=== PATIENT | male | born 1940 | race Caucasian/White ===

== ENCOUNTER 2023-02-09 20:38 | Observation (INO) ==
[2023-02-09 21:37] LABS: ABS Eosinophils 0.2 10^3/ul (0-0.6); ABS Lymphocytes 1.4 10^3/ul (1.0-4.8); ABS Monocytes 0.7 10^3/ul (0-0.8); ABS Neutrophils 5.7 10^3/ul (1.5-7.7); Eosinophil % 2.1 %; Hematocrit 45 % (42-52); Hemoglobin 14.8 g/dL (14.0-18.0); Lymphocyte % 17.9 %; Mean Corpuscular Hemoglobin 32 pg (27-31); Mean Corpuscular Hgb Conc 33 g/dL (31-36); Mean Corpuscular Volume 95 fL (80-94); Platelet Count 242 10^3/uL (150-450); Red Blood Count 4.71 10^6 /uL (4.18-5.48); Red Cell Distribution Width 13 % (10-15)
[2023-02-09 21:43] LABS: INR 1.02 (0.88-1.18)
[2023-02-09 22:11] LABS: Albumin 4.2 g/dL (3.2-5.2); Albumin/Globulin Ratio 1.8 (1-3); Calcium 9.5 mg/dL (8.6-10.3); Creatinine, Serum 1.34 mg/dL (0.67-1.17); Globulin 2.4 g/dL (2-4); Potassium 4.6 mmol/L (3.5-5.0); Total Bilirubin 0.4 mg/dL (0.2-1.0); Total Protein 6.6 g/dL (6.4-8.9); eGFR CKD-EPI 52.9 (>60)
[2023-02-09] MEDS ORDERED: Iohexol 350 (CONTRAST) 500 ML MDV IV ONE (23:01)
[2023-02-10] MEDS ORDERED: Iodixanol (CONTRAST) 320 MG/ML 100 ML SDV IV ONE (00:32)
[2023-02-10 04:31] LABS: Urine Appearance Clear; Urine Bilirubin Negative (Negative); Urine Blood 1+ (Negative); Urine Color Yellow; Urine Glucose Negative (Negative); Urine Ketones Negative (Negative); Urine Nitrite Negative (Negative); Urine Protein Negative (Negative); Urine Urobilinogen Negative (Negative)
[2023-02-10 05:08] LABS: Urine Bacteria Absent (Absent); Urine Red Blood Cell Trace(0-2/hpf) (Absent); Urine White Blood Cell Trace(0-5/hpf) (Absent)
[2023-02-10] MEDS ORDERED: Lactated Ringers 1000 ml BAG 1,000 ML IV ONE (05:21)
[2023-02-10] MEDS ORDERED: Polyethylene Glycol 3350 17 GM PACKET PO PRN (09:46)
[2023-02-10] MEDS ORDERED: Morphine 2 MG/ML SYRINGE IV PRN (09:48)
[2023-02-10] MEDS ORDERED: NS 0.9% 1000 ml BAG 1,000 ML IV SCH (10:00)
[2023-02-10] MEDS ORDERED: Propofol 10 MG/ML 20 ML BTL ONE (16:01)
[2023-02-10] MEDS ORDERED: Lidocaine 2% PF 5 ML VIAL ONE (16:02)
[2023-02-10] MEDS ORDERED: fentaNYL 100 mcg/2 ml 50 MCG/ML VIAL ONE (16:02)
[2023-02-10] MEDS ORDERED: Iohexol 180 (CONTRAST) 20 ML SDV IV ONE (16:40)
[2023-02-10] MEDS ORDERED: Iohexol 180 (CONTRAST) 10 ML SDV IV ONE (16:41)
[2023-02-10] MEDS ORDERED: cefTRIAXone 2 gm/50 mL D5W 2 GM/50 ML BAG IV ONE (16:56)
[2023-02-10] MEDS ORDERED: HYDROmorphone 1 MG/1 ML SYRINGE IV PRN (17:02)
[2023-02-10] MEDS ORDERED: fentaNYL 100 mcg/2 ml 50 MCG/ML VIAL IV PRN (17:02)
[2023-02-10] MEDS ORDERED: Naloxone 0.4 mg VIAL 0.4 mg/ml 1 ml VIAL IV PRN (17:02)
[2023-02-10] MEDS ORDERED: Acetaminophen IV 1 GM/100ML 1,000 MG/100 ML BAG IV PRN (17:02)
[2023-02-10] MEDS ORDERED: Ondansetron 4 mg VIAL 2 MG/ML 2 ml VIAL IV PRN (17:02)
[2023-02-10] MEDS ORDERED: Ondansetron 4 mg VIAL 2 MG/ML 2 ml VIAL ONE (17:48)
[2023-02-10] MEDS ORDERED: Dexamethasone IV 4 MG/ML VIAL 1 ml VIAL ONE (17:48)
[2023-02-10] MEDS ORDERED: Phenylephrine 40 mcg/mL 10mL (400mcg) SYRINGE ONE (17:55)
[2023-02-10] MEDS ORDERED: Glycopyrrolate IV 0.2 MG/ML 1 ML VIAL ONE (18:17)
[2023-02-11 06:11] LABS: ABS Lymphocytes 0.6 10^3/uL (1.0-4.8); ABS Monocytes 0.3 10^3/uL (0.0-1.1); ABS Neutrophils 5.9 10^3/uL (1.5-7.6); Hematocrit 41.2 % (38-53); Lymphocyte % 8.9 %; Mean Corpuscular Hemoglobin 31.7 pg (27-33); Mean Corpuscular Volume 93.3 fL (80-97); Platelet Count 216 10^3/uL (150-450); Red Blood Count 4.42 10^6/uL (4.06-5.63); Red Cell Distribution Width 12.9 % (12-17); White Blood Count 6.8 10^3/uL (3.6-10.2)
[2023-02-11 06:20] LABS: Albumin 3.6 g/dL (3.2-5.2); Albumin/Globulin Ratio 1.7 (1-3); Calcium 8.6 mg/dL (8.6-10.3); Creatinine, Serum 1.14 mg/dL (0.67-1.17); Globulin 2.1 g/dL (2-4); Potassium 4.6 mmol/L (3.5-5.0); Total Bilirubin 0.6 mg/dL (0.2-1.0); Total Protein 5.7 g/dL (6.4-8.9); eGFR CKD-EPI 64.2 (>60)
== END 2023-02-11 09:25 | disposition home or self-care (01) ==
LOC: SSU 20:38 → ED 20:38 → SSU 02-10 21:26
PROVIDERS: ADMIT Internal Medicine Hematology & Oncology; ATTEND Internal Medicine Hematology & Oncology